=== PATIENT | female | born 1980 | race Asian ===

== ENCOUNTER 2018-07-06 10:54 | Emergency (ER) | payer SELFPAY ==
[~2018-07-06] VITALS: Ht 152.4 cm; Wt 53.6 kg
[2018-07-06 11:03] VITALS: BP 113/74
--- NOTE | 2018-07-06 11:09 | NUR ---
PATIENT AMBULATED TO BED 8 AT THIS TIME
--- NOTE | 2018-07-06 11:12 | NUR ---
C/O SHARP EPIGASTRIC PAIN RADIATING DOWN TO BILAT LOWER ABDOMEN 11/01 X 2DAYS ACCOMAPNIED WITH N/V/D, & GENERALIZED WEAKNESS. PT REPORTS TENDERNESS TO LRQ UPON PALPATION. PT DENIED FEVER. ABDOMEN IS SOFT, FLAT AND NON TENDER EXCEPT TO LRQ. BOWEL SOUNDS PRESENT X4, LBM 07/06/18 DIARRHEA.
--- NOTE | 2018-07-06 11:19 | NUR ---
URINE COLLECTED AND SENT TO LAB
--- NOTE | 2018-07-06 11:28 | NUR ---
DR. LEE AT BEDSIDE EVALUATING PATIENT.
[2018-07-06] MEDS ORDERED: KETOROLAC 60 MG/2 ML VIAL IM ONE (11:30)
[2018-07-06] MEDS ORDERED: ONDANSETRON 4 MG ODT PO ONE (11:30)
[2018-07-06 11:53] VITALS: BP 113/74
--- NOTE | 2018-07-06 11:53 | NUR ---
Patient discharged with v/s stable. Written and verbal after care instructions given and explained. Patient alert, oriented and verbalized understanding of instructions. Ambulatory with steady gait. All questions addressed prior to discharge. ID band removed. Patient advised to follow up with PMD. Rx of IMMODIUM, ZOFRAN, MOTRIN given. Patient educated on indication of medication including possible reaction and side effects. Opportunity to ask questions provided and answered.
== END 2018-07-06 11:53 | disposition home or self-care (01) ==
LOC: MED 10:54
DX: R10.13 Epigastric pain (principal); R11.2 Nausea with vomiting, unspecified; R19.7 Diarrhea, unspecified
CPT/HCPCS: 81002; 81025; 96372; 99283; J1885; Q0162